=== PATIENT | female | born 1990 | race Caucasian/White ===

== ENCOUNTER 2023-11-16 15:11 | Inpatient (IN) | payer OTHER ==
[~2023-11-16] VITALS: Ht 152.4 cm; Wt 52.2 kg
[2023-11-16] MEDS ORDERED: BUTORPHANOL TARTRATE 2 MG/1 ML VIAL IV PRN ×2 (15:30)
[2023-11-16 15:49] LABS: Urine Bacteria None Seen /hpf (None Seen)
[2023-11-16 16:00] LABS: Basophils # (auto) 0 10 ^3/uL (0-0.2); Basophils % (auto) 0.4 % (0.0-2.0); Eosinophils # (auto) 0.1 10 ^3/uL (0-0.8); Hematocrit 41.7 % (36.0-46.0); Hemoglobin 14.1 g/dL (12.2-16.2); Lymphocytes # (auto) 1.9 10 ^3/uL (0.4-5.4); Lymphocytes % (auto) 22.3 % (10.0-50.0); Mean Corpuscular Hemoglobin 31.6 pg (28.0-32.0); Mean Corpuscular Hgb Conc. 33.9 g/dL (32.0-36.0); Mean Corpuscular Volume 93.1 fL (80.0-100.0); Monocytes # (auto) 0.7 10 ^3/uL (0-1.3); Monocytes % (auto) 7.9 % (0.0-12.0); Neutrophils # (auto) 5.9 10 ^3/uL (1.6-8.6); Neutrophils % (auto) 68.4 % (37.0-80.0); Red Blood Cells 4.48 10^6/uL (4.0-5.20); Red Cell Distribution Width 14.3 % (11.8-14.3); White Blood Cell 8.6 10^3/uL (4.4-10.8)
[2023-11-16 16:10] LABS: Urine Blood 1+ /uL (Negative); Urine Clarity Clear (Clear); Urine Color Light-Yellow (Yellow); Urine Protein, UAD Negative (Negative); Urine Specific Gravity 1.008 (1.001-1.035); Urine Urobilinogen Normal (Negative); Urine WBC 2 /hpf (0 - 5); Urine pH 6.5 (5.0-9.0)
[2023-11-16 16:23] LABS: Alanine Aminotransferase 23 U/L (7-40); Albumin 3.8 g/dL (3.2-4.8); Alkaline Phosphatase 174 U/L (46-116); Anion Gap 9 (5-15); Aspartate Aminotransferase 20 U/L (13-40); Blood Urea Nitrogen 9 mg/dL (9-23); Calcium 9.5 mg/dL (8.5-10.1); Carbon Dioxide 20 mmol/L (20-30); Chloride 107 mmol/L (98-107); Glucose 80 mg/dL (74-106); Sodium 136 mmol/L (136-145)
[2023-11-16 16:24] LABS: Bilirubin, Total 0.4 mg/dL (0.2-1.0); Total Protein 6.5 g/dL (5.7-8.2)
[2023-11-16 16:38] LABS: INR 0.92 (0.9-1.15); Partial Thromboplastin Time 25.9 SEC (24.5-34.5); Prothrombin Time 9.8 sec (9.3-11.8)
[2023-11-16] MEDS ORDERED: fentaNYL CITRATE 100 MCG/2 ML VL ONE (17:05)
[2023-11-16] MEDS: WITCH HAZEL-GLYCERIN PAD TOP PRN (17:12)
[2023-11-16] MEDS: LACTATED RINGER'S 1,000 ML IV SCH (17:12)
[2023-11-16] MEDS: PHISODERM TOP SOLN 240ML BTL TOP PRN (17:12)
[2023-11-16] MEDS: DERMOPLAST 60ML BOTTLE TOP PRN (17:12)
[2023-11-16] MEDS: fentaNYL CITRATE 100 MCG/2 ML VL IV STA (18:02)
[2023-11-16] MEDS: ROPIVACAINE HCL 200 ML ONE (18:13)
[2023-11-16] MEDS: ePHEDrine SULFATE 50 MG/ML AMP IV ONE (18:30)
[2023-11-16] MEDS: LACT. RINGERS/OXYTOCIN 20UNITS 500 ML IV ONE ×4 (18:30→20:47)
[2023-11-16] MEDS: NALOXONE HCL 0.4 MG/ML VIAL IV ONE (18:30)
[2023-11-16] MEDS: fentaNYL CITRATE 100 MCG/2 ML VL ONE (18:30)
[2023-11-16 20:42] LABS: Amphetamine Screen, Urine Neg (NEGATIVE); Barbiturate Scree,Urine Neg (NEGATIVE); Benzodiazephine Screen, Urine Neg (NEGATIVE); Cannabinoid Screen, Urine Neg (NEGATIVE); Cocaine Screen, Urine Neg (NEGATIVE); Opiate Scree,Urine Neg (NEGATIVE); Phencyclidine Screen, Urine Neg (NEGATIVE)
[2023-11-16] MEDS ORDERED: ONDANSETRON ODT 4 MG TAB PO PRN (20:45)
[2023-11-16] MEDS ORDERED: ACETAMINOPHEN 325 MG TAB PO PRN (20:45)
[2023-11-16] MEDS ORDERED: DOCUSATE SOD 100 MG CAP PO PRN (20:45)
[2023-11-16] MEDS ORDERED: IBUPROFEN 600 MG TAB PO PRN (20:45)
[2023-11-16] MEDS: LIDOCAINE 2%HCL (LOCAL ANESTH.) INJ 20ML MDV IJ PRN (21:47)
[2023-11-17] MEDS ORDERED: ACETAMINOPHEN 325 MG TAB PO PRN (02:15)
[2023-11-17] MEDS ORDERED: ONDANSETRON ODT 4 MG TAB PO PRN (02:15)
[2023-11-17 03:00] VITALS: BP 106/58; PULSE 96; RESP 16; O2SAT 99
[2023-11-17 06:58] LABS: Basophils # (auto) 0 10 ^3/uL (0-0.2); Basophils % (auto) 0.4 % (0.0-2.0); Eosinophils # (auto) 0.1 10 ^3/uL (0-0.8); Eosinophils % (auto) 0.9 % (0.0-7.0); Hematocrit 41.5 % (36.0-46.0); Hemoglobin 13.6 g/dL (12.2-16.2); Lymphocytes # (auto) 2.7 10 ^3/uL (0.4-5.4); Mean Corpuscular Hgb Conc. 32.9 g/dL (32.0-36.0); Mean Corpuscular Volume 94.4 fL (80.0-100.0); Monocytes # (auto) 1.2 10 ^3/uL (0-1.3); Monocytes % (auto) 8.7 % (0.0-12.0); Neutrophils # (auto) 9.5 10 ^3/uL (1.6-8.6); Nucleated Red Blood Cells % 0.1 %; Red Blood Cells 4.39 10^6/uL (4.0-5.20); Red Cell Distribution Width 14.4 % (11.8-14.3); White Blood Cell 13.6 10^3/uL (4.4-10.8)
[2023-11-17 07:06] LABS: RPR Non Reactive (Non Reactive)
[2023-11-17 07:19] VITALS: BP 108/70; PULSE 82; RESP 18; O2SAT 99
[2023-11-17 10:53] VITALS: BP 91/54; PULSE 93; RESP 17; TEMP 98.2; O2SAT 99
[2023-11-17] MEDS: IBUPROFEN 600 MG TAB PO PRN (11:05)
[2023-11-17 14:39] VITALS: BP 101/67; PULSE 91; RESP 18; TEMP 98.4; O2SAT 99
[2023-11-17 19:00] VITALS: BP 106/72; PULSE 98; RESP 18; TEMP 99.3; O2SAT 97
[2023-11-17] MEDS ORDERED: DOCU-94 PO (20:37)
[2023-11-17] MEDS ORDERED: PREN1TAB56 PO (20:37)
[2023-11-17] MEDS ORDERED: IBU600T PO (20:37)
[2023-11-17 21:49] VITALS: BP 105/74; PULSE 96; RESP 16; TEMP 98.2; O2SAT 98
[2023-11-17] MEDS ORDERED: DOCUSATE SOD 100 MG CAP PO SCH (22:00)
[2023-11-18 19:06] LABS: Treponema pallidum Ab (FTA-Ab) Non Reactive (Non Reactive)
== END 2023-11-17 21:48 | disposition home or self-care (01) | DRG 807 ==
LOC: LDRP 15:11
PROVIDERS: ADMIT Obstetrics & Gynecology; ATTEND Obstetrics & Gynecology
PROC: 10E0XZZ Delivery of Products of Conception, External Approach (ICD-10-PCS; principal; 2023-11-16)
PROC: 0KQM0ZZ Repair Perineum Muscle, Open Approach (ICD-10-PCS; 2023-11-16)
PROC: 3E0R3BZ Introduction of Anesthetic Agent into Spinal Canal, Percutaneous Approach (ICD-10-PCS; 2023-11-16)
PROC: 00HU33Z Insertion of Infusion Device into Spinal Canal, Percutaneous Approach (ICD-10-PCS; 2023-11-16)
DX: O77.0 Labor and delivery complicated by meconium in amniotic fluid (principal); Z37.0 Single live birth; O70.1 Second degree perineal laceration during delivery; Z3A.40 40 weeks gestation of pregnancy
CPT/HCPCS: 36415; 59025; 59409; 62282; 80053; 80307; 81001; 85025; 85610; 85730; 86592; 86850; 86900; 86901; 94760; 94762; 96360; 96361; 96365; 96366; G0378; J2590